=== PATIENT | male | born 1980 | race American Indian/Alaskan Native ===

== ENCOUNTER 2016-12-07 06:34 | Emergency (ER) | payer OTHER ==
[2016-12-07 06:43] VITALS: BP 112/82
--- NOTE | 2016-12-07 08:03 | Emergency Department Report ---
ED ENT HPI - General Chief complaint: Sore Throat Stated complaint: SORE THROAT Time Seen by Provider: 12/07/16 07:53 Source: patient Mode of arrival: Ambulatory Limitations: No Limitations - History of Present Illness Initial comments: PT states he was working last night and he started having a sore throat and cough. PT states the cough is not bad but he can only eat soft food because his throat hurts when he swallows. PT states he needs a work note because he left work early. PT states he tried sucking on a Peppermint for his symptoms but it did not help. MD complaint: sore throat -: Gradual, days(s) Severity: moderate Severity scale (0 -10): 6 Quality: sharp, constant Consistency: constant Improves with: none Worsens with: swallowing, eating Associated Symptoms: cough, pain with swallowing, sore throat. denies: fever, rhinorrhea - Related Data Previous Rx's Medication Instructions Recorded Last Taken Type Benzonatate [Tessalon Perles] 100 mg PO Q8HR PRN #12 capsule 12/07/16 Unknown Rx Ibuprofen [Motrin] 600 mg PO Q8H PRN #15 tablet 12/07/16 Unknown Rx Lidocaine Viscous 2% 15 ml MM QID PRN #120 udc 12/07/16 Unknown Rx Allergies Allergy/AdvReac Type Severity Reaction Status Date / Time peanut Allergy Itching Verified 12/07/16 06:38 shellfish derived Allergy Angioedema Verified 12/07/16 06:38 ED Dental HPI - General Chief complaint: Sore Throat Stated complaint: SORE THROAT Time Seen by Provider: 12/07/16 07:53 Source: patient Mode of arrival: Ambulatory Limitations: No Limitations - Related Data Previous Rx's Medication Instructions Recorded Last Taken Type Benzonatate [Tessalon Perles] 100 mg PO Q8HR PRN #12 capsule 12/07/16 Unknown Rx Ibuprofen [Motrin] 600 mg PO Q8H PRN #15 tablet 12/07/16 Unknown Rx Lidocaine Viscous 2% 15 ml MM QID PRN #120 udc 12/07/16 Unknown Rx Allergies Allergy/AdvReac Type Severity Reaction Status Date / Time peanut Allergy Itching Verified 12/07/16 06:38 shellfish derived Allergy Angioedema Verified 12/07/16 06:38 ED Review of Systems ROS: Stated complaint: SORE THROAT Other details as noted in HPI Comment: All other systems reviewed and negative Constitutional: chills (possible, pt states when he is at work, he is usually hot but yesterday he was cold ). denies: fever ENT: as per HPI, throat pain Respiratory: cough. denies: shortness of breath, SOB with exertion, SOB at rest Cardiovascular: denies: chest pain Gastrointestinal: denies: nausea, vomiting ED Past Medical Hx - Past Medical History Previous Medical History?: No - Surgical History Past Surgical History?: No - Social History Smoking Status: Never Smoker Substance Use Type: None - Medications Home Medications: Home Medications Medication Instructions Recorded Confirmed Last Taken Type Benzonatate [Tessalon Perles] 100 mg PO Q8HR PRN #12 capsule 12/07/16 Unknown Rx Ibuprofen [Motrin] 600 mg PO Q8H PRN #15 tablet 12/07/16 Unknown Rx Lidocaine Viscous 2% 15 ml MM QID PRN #120 udc 12/07/16 Unknown Rx ED Physical Exam - General Limitations: No Limitations General appearance: alert, in no apparent distress - Head Head exam: Present: atraumatic, normocephalic, normal inspection - Eye Eye exam: Present: normal appearance, PERRL, EOMI. Absent: conjunctival injection Pupils: Present: normal accommodation - ENT ENT exam: Present: normal exam, normal orophraynx, mucous membranes moist, TM's normal bilaterally, normal external ear exam - Expanded ENT Exam Expanded Mouth exam: Present: normal external inspection. Absent: drooling, trismus, muffled voice Throat exam: Positive: normal inspection. Negative: tonsillar erythema, tonsillomegaly, tonsillar exudate, R peritonsillar mass, L peritonsillar mass - Neck Neck exam: Present: normal inspection, full ROM. Absent: tenderness, lymphadenopathy - Respiratory Respiratory exam: Present: normal lung sounds bilaterally. Absent: respiratory distress, wheezes, rales, rhonchi - Cardiovascular Cardiovascular Exam: Present: regular rate, normal rhythm, normal heart sounds - Extremities Exam Extremities exam: Present: normal inspection, full ROM - Back Exam Back exam: Present: normal inspection, full ROM. Absent: tenderness, CVA tenderness (R), CVA tenderness (L) - Neurological Exam Neurological exam: Present: alert, oriented X3, CN II-XII intact, normal gait - Psychiatric Psychiatric exam: Present: normal affect, normal mood - Skin Skin exam: Present: warm, dry, intact ED Course Vital Signs 12/07/16 12/07/16 06:40 08:26 Temperature 97.9 F Pulse Rate 69 Respiratory 18 20 Rate Blood Pressure 112/82 O2 Sat by Pulse 100 Oximetry - Reevaluation(s) Reevaluation #1: 12/07/16 08:09 PT aware of dx and plan of care. STrict return precautions reviewed. PT has no questions at this time. - Pulse Oximetry Interpretation Digit-Finger Initial Pulse Oximetry Readin Actions Taken: none ED Medical Decision Making - Differential Diagnosis strep pharyngitis, viral uri Critical Care Time: No Critical care attestation.: If time is entered above; I have spent that time in minutes in the direct care of this critically ill patient, excluding procedure time. ED Disposition Clinical Impression: Viral URI with cough Disposition: - TO HOME OR SELFCARE Is pt being admited?: No Does the pt Need Aspirin: No Condition: Stable Instructions: Pharyngitis (ED), Upper Respiratory Infection (ED) Additional Instructions: Rest Increase fluids gargle with warm salt water three times a day return to the ED if you are having trouble swallowing your saliva, you can not open your mouth or you are drooling or have concerns Prescriptions: Benzonatate [Tessalon Perles] 100 mg PO Q8HR PRN #12 capsule PRN Reason: Cough Ibuprofen [Motrin] 600 mg PO Q8H PRN #15 tablet PRN Reason: Pain Lidocaine Viscous 2% 15 ml MM QID PRN #120 udc PRN Reason: Sore Throat Referrals: PRIMARY MD AGNES [Primary Care Provider] - 3-5 Days LE ALCANTARA MD [Staff Physician] - 3-5 Days [facility] [Outside] - 3-5 Days Forms: Work/School Release Form(ED) Time of Disposition: 08:11
[2016-12-07] MEDS ORDERED: MOTRIN PO ONE (08:06)
== END 2016-12-07 08:27 | disposition home or self-care (01) ==
LOC: ED 06:34
DX: J06.9 Acute upper respiratory infection, unspecified (principal)
CPT/HCPCS: 99282

== ENCOUNTER 2017-04-26 06:12 | Emergency (ER) | payer OTHER ==
[2017-04-26] MEDS ORDERED: TYLENOL PO ONE (08:24)
--- NOTE | 2017-04-26 08:28 | Emergency Department Report ---
- General Chief Complaint: Pain General Stated Complaint: BODYACHES Time Seen by Provider: 04/26/17 08:21 Source: patient Mode of arrival: Ambulatory Limitations: No Limitations - History of Present Illness Initial Comments: 37M PMH right arm surgery p/w c/o 1 weeks of cough, some body aches. Denies nausea vomiting chest pain palpitations shortness of breath dyspnea increased urinary frequency dysuria hematuria or foul-smelling urine. Denies recent travel. States he has had some sick contacts at work with cold/viral syndrome symptoms. Patient states he works in cold environment. Patient is awake alert and oriented 3 nontoxic appearing. Denies nausea or vomiting denies severe sore throat but does state that his throat feels slightly achy, denies ear pain. Some clear nasal discharge.. MD Complaint: fever, sore throat, rhinorrhea Onset/Timin -: week(s) - Related Data Previous Rx's Medication Instructions Recorded Last Taken Type Benzonatate [Tessalon Perles] 100 mg PO Q8HR PRN #12 capsule 12/07/16 Unknown Rx Ibuprofen [Motrin] 600 mg PO Q8H PRN #15 tablet 12/07/16 Unknown Rx Lidocaine Viscous 2% 15 ml MM QID PRN #120 udc 12/07/16 Unknown Rx Benzonatate [Tessalon Perles] 100 mg PO Q8HR PRN #30 capsule 04/26/17 Unknown Rx Clotrimazole [Jock Itch] 1 gm TP BID #1 cream..g. 04/26/17 Unknown Rx Ibuprofen [Motrin] 800 mg PO Q8HR PRN #30 tablet 04/26/17 Unknown Rx Phenylephrine/Dm/Acetaminop/GG 10 ml PO Q4H PRN #1 liquid 04/26/17 Unknown Rx [Mucinex Tfqs-Wab-Kowbhzssmq Lq] Allergies Allergy/AdvReac Type Severity Reaction Status Date / Time peanut Allergy Itching Verified 12/07/16 06:38 shellfish derived Allergy Angioedema Verified 12/07/16 06:38 ED Review of Systems ROS: Stated complaint: BODYACHES Other details as noted in HPI ED Past Medical Hx - Past Medical History Previous Medical History?: No - Surgical History Past Surgical History?: Yes Additional Surgical History: right arm - Social History Smoking Status: Former Smoker Substance Use Type: None - Medications Home Medications: Home Medications Medication Instructions Recorded Confirmed Last Taken Type Benzonatate [Tessalon Perles] 100 mg PO Q8HR PRN #12 capsule 12/07/16 Unknown Rx Ibuprofen [Motrin] 600 mg PO Q8H PRN #15 tablet 12/07/16 Unknown Rx Lidocaine Viscous 2% 15 ml MM QID PRN #120 udc 12/07/16 Unknown Rx Benzonatate [Tessalon Perles] 100 mg PO Q8HR PRN #30 capsule 04/26/17 Unknown Rx Clotrimazole [Jock Itch] 1 gm TP BID #1 cream..g. 04/26/17 Unknown Rx Ibuprofen [Motrin] 800 mg PO Q8HR PRN #30 tablet 04/26/17 Unknown Rx Phenylephrine/Dm/Acetaminop/GG 10 ml PO Q4H PRN #1 liquid 04/26/17 Unknown Rx [Mucinex Jbyr-Ita-Zasdsppaog Lq] ED Physical Exam - General Limitations: No Limitations ED Course Vital Signs 04/26/17 04/26/17 04/26/17 06:34 08:32 10:29 Temperature 99.4 F 98.9 F Pulse Rate 80 72 Respiratory 18 18 Rate Blood Pressure 129/88 Blood Pressure 113/79 [Left] O2 Sat by Pulse 100 100 Oximetry ED Medical Decision Making - Lab Data Result diagrams: 04/26/17 08:45 04/26/17 08:45 - Medical Decision Making A/P: Viral syndrome, URI, balanitis 1-Mucinex when necessary, Motrin when necessary, Tessalon Perles when necessary 2-topical treatment of balanitis with clotrimazole 3-follow-up with primary care 4-vital signs stable for discharge. Labs show no significant abnormality, minor increase in creatinine kinase, 300s. I advised patient to remain well- hydrated. Chest x-ray unremarkable, flu and strep swabs negative. Critical care attestation.: If time is entered above; I have spent that time in minutes in the direct care of this critically ill patient, excluding procedure time. ED Disposition Clinical Impression: Balanitis Upper respiratory infection Qualifiers: URI type: unspecified viral URI Qualified Code(s): J06.9 - Acute upper respiratory infection, unspecified Disposition: DC- TO HOME OR SELFCARE Is pt being admited?: No Does the pt Need Aspirin: No Condition: Stable Instructions: Balanitis (ED), Cold Symptoms (ED), Viral Syndrome (ED), Upper Respiratory Infection (ED) Prescriptions: Benzonatate [Tessalon Perles] 100 mg PO Q8HR PRN #30 capsule PRN Reason: Cough Clotrimazole [Jock Itch] 1 gm TP BID #1 cream..g. Ibuprofen [Motrin] 800 mg PO Q8HR PRN #30 tablet PRN Reason: Fever Phenylephrine/Dm/Acetaminop/GG [Mucinex Dgyr-Djc-Mitdazpvdy Lq] 10 ml PO Q4H PRN #1 liquid PRN Reason: Cough Referrals: [facility] [place] [Outside] - 3-5 Days [facility] [Outside] - 3-5 Days AMERICA MOSCOSO MD [Staff Physician] - 3-5 Days Forms: Work/School Release Form(ED) Time of Disposition: 11:11
[2017-04-26 09:04] LABS: Bilirubin,Urine NEG (Negative); Blood,Urine NEG (Negative); Color,Urine Straw (Yellow); Mucus,Urine FEW /HPF; Nitrite,Urine NEG (Negative); Protein,Urine <15 mg/dL mg/dL (Negative); Urobilinogen,Urine < 2.0 mg/dL (<2.0)
[2017-04-26 09:30] LABS: BUN/Creatinine Ratio 9; Blood Urea Nitrogen 6 mg/dL (9-20); Calcium 8.7 mg/dL (8.4-10.2); Hemolysis Index 34
[2017-04-26 09:35] LABS: Hematocrit 40.2 % (35.5-45.6); Hemoglobin 13.2 gm/dl (11.8-15.2); Mean Corpuscular HGB Conc 33 % (32-34); Mean Corpuscular Hemoglobin 32 pg (28-32); Mean Corpuscular Volume 97 fl (84-94); Platelet Count 147 K/mm3 (140-440); Red Blood Count 4.14 M/mm3 (3.65-5.03); Red Cell Distribution Width 12.7 % (13.2-15.2)
[2017-04-26 10:30] VITALS: BP 113/79
--- NOTE | 2017-04-26 10:36 | XRay Report ---
ROUTINE CHEST, TWO VIEWS: HISTORY: Cough. The trachea, heart, mediastinal contour, lung [place] and bony thorax are unremarkable. IMPRESSION: Unremarkable chest x-ray.
[2017-04-26 10:39] LABS: Basophils % (Manual) 0 % (0.0-1.8); Eosinophils % (Manual) 0 % (0.0-4.3); Macrocytosis 1+; Platelet Estimate Consistent w Auto; Total Cells Counted 100
== END 2017-04-26 11:26 | disposition home or self-care (01) ==
LOC: ED 06:12
DX: J06.9 Acute upper respiratory infection, unspecified (principal); N48.1 Balanitis
CPT/HCPCS: 36415; 71046; 80048; 81001; 82550; 85007; 85025; 87116; 87400; 87430; 87491; 99284

== ENCOUNTER 2021-03-25 15:24 | Emergency (ER) | payer OTHER ==
--- NOTE | 2021-03-25 19:44 | Event Note ---
ED Screening Note Date of service: 03/25/21 Time: 19:44 ED Screening Note: This initial assessment/diagnostic orders/clinical plan/treatment(s) is/are subject to change based on patients health status, clinical progression and re- assessment by fellow clinical providers in the ED. Further treatment and workup at subsequent clinical providers discretion. Patient/guardian urged not to elope from the ED as their condition may be serious if not clinically assessed and managed. 40-year-old male here with complaint of 2 weeks of congestion, sinus pain, cough, shortness of breath. Patient may have bacterial sinusitis but will obtain chest x-ray to rule out pneumonia. Initial orders include: Chest x-ray.
--- NOTE | 2021-03-25 20:12 | XRay Report ---
CHEST PA AND LATERAL VIEWS INDICATION: dyspnea; cough. COMPARISON: 04/26/2017 FINDINGS: Support devices: None. Heart: Within normal limits. Lungs/Pleura: No acute pulmonary or pleural findings. IMPRESSION: 1. No acute findings. Signer Name: Torres Leonardo MD Signed: 03/25/2021 8:07 PM Workstation Name: [id number]
--- NOTE | 2021-03-25 21:52 | Emergency Department Report ---
Minor Respiratory - HPI Chief Complaint: Dyspnea/Respdistress Stated Complaint: COUGH Minor Respiratory: Yes Rhinorrhea, Yes Sore Throat, Yes Cough, Yes Shortness of Breath, No Fever Other History: 40-year-old male here with complaint of 2 weeks of congestion, sinus pain, cough, shortness of breath. Patient may have bacterial sinusitis but will obtain chest x-ray to rule out pneumonia. ED Review of Systems ROS: Stated complaint: COUGH Other details as noted in HPI Comment: All other systems reviewed and negative ED Past Medical Hx - Surgical History Additional Surgical History: right arm - Social History Smoking Status: Former Smoker Substance Use Type: None - Medications Home Medications: Home Medications Medication Instructions Recorded Confirmed Last Taken Type Benzonatate [Tessalon Perles] 100 mg PO Q8HR PRN #12 capsule 12/07/16 Unknown Rx Ibuprofen [Motrin] 600 mg PO Q8H PRN #15 tablet 12/07/16 Unknown Rx Lidocaine Viscous 2% 15 ml MM QID PRN #120 udc 12/07/16 Unknown Rx Benzonatate [Tessalon Perles] 100 mg PO Q8HR PRN #30 capsule 04/26/17 Unknown Rx Clotrimazole [Jock Itch] 1 gm TP BID #1 cream..g. 04/26/17 Unknown Rx Ibuprofen [Motrin] 800 mg PO Q8HR PRN #30 tablet 04/26/17 Unknown Rx Phenylephrine/Dm/Acetaminop/GG 10 ml PO Q4H PRN #1 liquid 04/26/17 Unknown Rx [Mucinex Cujd-Qdg-Ypqditgsdf Lq] Amoxicillin/Potassium Clav 1 each PO BID 10 Days #20 tablet 03/25/21 Unknown Rx [Augmentin 875-125 Tablet] Fluticasone [Flonase] 1 spray NS QDAY #1 bottle 03/25/21 Unknown Rx Loratadine (Nf) [Claritin (Nf)] 10 mg PO DAILY #20 tablet 03/25/21 Unknown Rx Minor Respiratory Exam - Exam General: Vital signs noted. No distress. Alert and acting appropriately. Neurologic: Alert and oriented, no deficits. Musculoskeletal: Unremarkable. ED Course Vital Signs 03/25/21 15:26 Temperature 97.6 F Pulse Rate 67 Respiratory 18 Rate Blood Pressure 128/87 [Right] O2 Sat by Pulse 99 Oximetry ED Medical Decision Making - Radiology Data Radiology results: report reviewed [facility] [address] [place] [address] XRay Report Signed Patient: BHARGAVI PARADA MR#: [id number] : 1980 Acct:[id number] Age/Sex: 40 / M ADM Date: 03/25/21 Loc: ED Attending Dr: Ordering Physician: DENILSON ELDER MD Date of Service: 03/25/21 Procedure(s): XR chest routine 2V Accession Number(s): [id number] cc: DENILSON ELDER MD Fluoro Time In Minutes: CHEST PA AND LATERAL VIEWS INDICATION: dyspnea; cough. COMPARISON: 04/26/2017 FINDINGS: Support devices: None. Heart: Within normal limits. Lungs/Pleura: No acute pulmonary or pleural findings. IMPRESSION: 1. No acute findings. Signer Name: Torres Leonardo MD Signed: 03/25/2021 8:07 PM Workstation Name: [id number] Transcribed By: Dictated By: Torres Leonardo MD Electronically Authenticated By: Torres Leonardo MD Signed Date/Time: 03/25/212006 DD/ 06 TD/TT: Print Cancel - Medical Decision Making 40-year-old male here with complaint of 2 weeks of congestion, sinus pain, cough, shortness of breath. Patient may have bacterial sinusitis but will obtain chest x-ray to rule out pneumonia Chest x-ray is negative for pneumonia. Patient be treated for sinus infection. Placed on Augmentin Flonase and ferritin. Critical care attestation.: If time is entered above; I have spent that time in minutes in the direct care of this critically ill patient, excluding procedure time. ED Disposition Clinical Impression: Sinusitis nasal Disposition: HOME / SELF CARE / HOMELESS Is pt being admited?: No Does the pt Need Aspirin: No Condition: Stable Instructions: Sinusitis, Adult, Kido-mq-Fzex Additional Instructions: Chest x-ray is negative for any acute findings. Prescriptions: Amoxicillin/Potassium Clav [Augmentin 875-125 Tablet] 1 each PO BID 10 Days #20 tablet Loratadine (Nf) [Claritin (Nf)] 10 mg PO DAILY #20 tablet Fluticasone [Flonase] 1 spray NS QDAY #1 bottle Referrals: PRIMARY CARE, [Primary Care Provider] - 3-5 Days Time of Disposition: 21:51
[2021-03-25 22:47] VITALS: BP 130/80
== END 2021-03-25 22:13 | disposition home or self-care (01) ==
LOC: ED 15:24
DX: J32.9 Chronic sinusitis, unspecified (principal)
CPT/HCPCS: 71046; 99283